=== PATIENT | male | born 1965 ===

== ENCOUNTER 2019-04-01 06:19 | Observation (INO) ==
[2019-04-01] MEDS ORDERED: NITROGLYCERIN TOP ONE (06:26)
[2019-04-01 06:35] LABS: BASO# 0.05 X1000 (0.0-0.2); BASO% 0.5 % (0.0-0.8); EOS# 0.35 X1000 (0.0-0.7); EOS% 3.4 % (0.0-10.0); HEMATOCRIT 50.7 % (42.0-52.0); HEMOGLOBIN 16.7 g/dL (14.0-18.0); IMM GRAN# 0.02 X1000 (0.0-0.04); IMM GRAN% 0.2 % (0.0-0.5); LYMPH# 3.98 X1000 (1.2-3.4); LYMPH% 38.9 % (20.5-51.1); MCH 30.3 PG (27-31); MCHC 32.9 g/dL (33-37); MONO# 0.67 X1000 (0.11-0.59); MONO% 6.5 % (1.7-9.3); MPV 9.1 FL (7.4-10.4); NEUT# 5.17 X1000 (1.4-6.5); NEUT% 50.5 % (42.2-75.2); PLT 295 X1000 (130-400); RBC 5.51 XMIL (4.7-6.1); WBC 10.24 X1000 (4.8-10.8)
[2019-04-01] MEDS ORDERED: ZOFRAN IV ONE (06:48)
[2019-04-01] MEDS ORDERED: MORPHINE IV ONE (06:48)
[2019-04-01 07:06] LABS: AGAP 14; ALBUMIN 4.9 g/dL (3.5-5.0); ALKALINE PHOSPHATASE 66 U/L (32-122); BUN 19 mg/dL (8-22); CALCIUM 9.4 mg/dL (8.8-10.2); CHLORIDE 103 mmol/L (98-107); COSMO 285; CREATININE 1.2 mg/dL (0.7-1.2); ESTIMATED GFR > 60; GLUCOSE 134 mg/dL (70-104); GOT 20 U/L (10-34); GPT 25 U/L (10-44); POTASSIUM 4.6 mmol/L (3.5-5.1); SODIUM 141 mmol/L (136-145); TCO2 24 mmol/L (25-35); TOTAL PROTEIN 7.1 g/dL (6.3-8.3)
--- NOTE | 2019-04-01 08:23 | Diag Imaging Result Doc PS360 ---
EXAM: CHEST-PORTABLE HISTORY: cp TECHNIQUE: Single view of the chest was performed portably. COMPARISON: None. FINDINGS: This been a suboptimal inspiratory result with crowding of the basilar bronchovascular structures. The cardiomediastinal silhouette is within normal limits. The pulmonary vasculature is not congested. No infiltrate, effusion, or pneumothorax is appreciated. IMPRESSION: Poor inspiratory result with crowding of basilar bronchovascular structures. Electronically signed by Maru Pedroza 04/01/2019 8:21 AM
--- NOTE | 2019-04-01 08:34 | PROVIDER DOCUMENTATION ---
HPI-Chest Pain - General Chief Complaint: Chest Pain Stated Complaint: CHEST PAIN Time Seen by Provider: 04/01/19 08:11 Source: patient Allergies/Adverse Reactions: Patient Allergies Allergy/AdvReac Type Severity Reaction Status Date / Time No Known Allergies Allergy Verified 04/01/19 06:25 Home Medications: Home Medication List Medication Instructions Recorded Confirmed Last Taken Type Aspirin 81 mg PO DAILY 04/01/19 04/01/19 Unknown History - History of Present Illness-CP Nature of Presenting Problem: 53yom present to ER with c/o L sided chest pain onset around 0500 this morning. Pt reports he was at work when he became diaphoretic, SOB, nauseated and having CP. Pt states his pain has eased some but still rates 5/10. Pt reports he had "some blockage" when they done a heart cath 10 years ago. Pt has not been followed by cardiology. Location: reports: central Chest Pain Radiation: reports: no radiation Quality of Pain: reports: pressure, tightness Onset/Duration: this morning Timing: still present, improving Modifying Factors: improves with: nothing Associated Symptoms: reports: diaphoresis, fatigue, nausea, shortness of breath. denies: dizziness, edema, fever/chills, vomiting Nitro Today/Relief: 0.4 mg x 1, provided by ED, mild relief Aspirin Treatment Today: 81 mg x 4 Similar Symptoms Previously?: No Review of Systems - Adult - REVIEW OF SYSTEMS - ADULT Constitutional: reports: no symptoms reported. denies: chills, fever Eyes: reports: no symptoms reported Ears, Nose, Mouth & Throat: reports: no symptoms reported Cardiovascular: reports: see HPI, chest pain. denies: edema Respiratory: reports: see HPI, shortness of breath. denies: cough, wheezing Gastrointestinal: reports: see HPI, nausea. denies: abdominal pain, diarrhea, vomiting Genitourinary: reports: no symptoms reported Musculoskeletal: reports: no symptoms reported. denies: back pain Integumentary: reports: no symptoms reported Neurological: reports: no symptoms reported Psychiatric: reports: no symptoms reported Endocrine: reports: no symptoms reported Hematologic/Lymphatic: reports: no symptoms reported Allergic/Immunologic: reports: no symptoms reported All Other Systems: Reviewed and Negative Past History - Adult - PAST MEDICAL HISTORY-ADULT Review of Records: reports: Old Records Reviewed, Nursing Assessment Review, Medications Reviewed, Social history reviewed & non-contributory. Major Childhood Illnesses: reports: denies history Cardiovascular: reports: HTN, hyperlipidemia Respiratory: reports: denies history Gastrointestinal: reports: denies history Obstetrical/Gynecological: reports: denies history Genitourinary: reports: denies history Musculoskeletal: reports: denies history Neurological: reports: denies history Endocrine/Immune: reports: denies history Other Conditions: reports: denies history Physical Exam-General - PHYSICAL EXAM-ADULT Initial Vital Signs Reviewed: Yes - CONSTITUTIONAL General Appearance: appears well, alert, no apparent distress - EYES Eyes: pink conjunctivae - HEAD, EARS, NOSE, MOUTH & THROAT HENMT: moist mucous membranes, normal ENT inspection - NECK Neck: full range of motion, supple, normal inspection - RESPIRATORY Respiratory: chest non-tender, lungs clear, normal breath sounds, no pleuratic chest pain, no respiratory distress, no accessory muscle use. negative: crackles, rales, rhonchi, stridor, wheezing - CARDIOVASCULAR Cardiovascular: normal peripheral pulses, no edema, bradycardia - GASTROINTESTINAL (ABDOMEN) Abdominal Exam: normal bowel sounds, non tender, soft - LYMPHATIC Lymphatic: no adenopathy - MUSCULOSKELETAL Back Exam: normal inspection Extremity: normal range of motion, normal inspection, no pedal edema, no calf tenderness, normal capillary refill - SKIN Integumentary: normal color, warm/dry - NEUROLOGIC Neurologic: grossly normal, no motor/sensory deficits - PSYCHIATRIC Psych/Mental Status: normal mood/affect, normal thought content, normal thought process, oriented x 3 - HEART Score HEART Score: History: Moderately Suspicious HEART Score: ECG: Normal HEART Score: Age: 45-65 Years HEART Score: Risk Factors for Atherosclerotic Disease: 1 or 2 Risk Factors HEART Score: Troponin: < or = Normal Limit Total HEART Score:: 3 Progress - PLAN OF CARE/RESULTS Progress/Plan/Lab Results: Vital Signs - 8 hr 04/01/19 06:23 04/01/19 07:43 04/01/19 08:43 Temperature 98.3 F Pulse Rate 50 L 63 64 Respiratory Rate 18 14 18 Blood Pressure 151/95 151/94 133/86 O2 Sat by Pulse Oximetry 100 97 96 Laboratory Results - last 24 hr 04/01/19 04/01/19 04/01/19 06:24 06:24 06:24 WBC 10.24 RBC 5.51 Hgb 16.7 Hct 50.7 MCV 92.0 MCH 30.3 MCHC 32.9 L RDW Std Deviation 14.0 Plt Count 295 MPV 9.1 Immature Gran % (Auto) 0.2 Neut % (Auto) 50.5 Lymph % (Auto) 38.9 [place] % (Auto) 6.5 Eos % (Auto) 3.4 Baso % (Auto) 0.5 Immature Gran # (Auto) 0.02 Neut # (Auto) 5.17 Lymph # (Auto) 3.98 H [place] # (Auto) 0.67 H Eos # (Auto) 0.35 Baso # (Auto) 0.05 D-Dimer, Quantitative Sodium Potassium Chloride Carbon Dioxide Anion Gap BUN Creatinine Estimated GFR/1.73 m2 BUN/Creatinine Ratio Glucose Calculated Osmolality Calcium Total Bilirubin AST ALT Alkaline Phosphatase Creatine Kinase 111 Troponin T < 0.010 Total Protein Albumin Globulin Albumin/Globulin Ratio 04/01/19 04/01/19 04/01/19 06:24 06:24 08:40 WBC RBC Hgb Hct MCV MCH MCHC RDW Std Deviation Plt Count MPV Immature Gran % (Auto) Neut % (Auto) Lymph % (Auto) [place] % (Auto) Eos % (Auto) Baso % (Auto) Immature Gran # (Auto) Neut # (Auto) Lymph # (Auto) [place] # (Auto) Eos # (Auto) Baso # (Auto) D-Dimer, Quantitative < 0.27 Sodium 141 Potassium 4.6 Chloride 103 Carbon Dioxide 24 L Anion Gap 14 BUN 19 Creatinine 1.2 Estimated GFR/1.73 m2 > 60 BUN/Creatinine Ratio 16 Glucose 134 H Calculated Osmolality 285 Calcium 9.4 Total Bilirubin 0.50 AST 20 ALT 25 Alkaline Phosphatase 66 Creatine Kinase 109 Troponin T Total Protein 7.1 Albumin 4.9 Globulin 2.0 Albumin/Globulin Ratio 2.0 04/01/19 08:40 WBC RBC Hgb Hct MCV MCH MCHC RDW Std Deviation Plt Count MPV Immature Gran % (Auto) Neut % (Auto) Lymph % (Auto) [place] % (Auto) Eos % (Auto) Baso % (Auto) Immature Gran # (Auto) Neut # (Auto) Lymph # (Auto) [place] # (Auto) Eos # (Auto) Baso # (Auto) D-Dimer, Quantitative Sodium Potassium Chloride Carbon Dioxide Anion Gap BUN Creatinine Estimated GFR/1.73 m2 BUN/Creatinine Ratio Glucose Calculated Osmolality Calcium Total Bilirubin AST ALT Alkaline Phosphatase Creatine Kinase Troponin T < 0.010 Total Protein Albumin Globulin Albumin/Globulin Ratio Orders Category Date Time Status Cardiac Monitoring DIRECTED Care 04/01/19 06:24 Active CHEST-PORTABLE [RAD] Stat Exams 04/01/19 06:39 Completed CBC WITH ELECTRONIC DIFF [HEME] Stat Lab 04/01/19 06:24 Completed CK PROFILE [SP CHEM] Stat Lab 04/01/19 06:24 Completed CK PROFILE [SP CHEM] Stat Lab 04/01/19 08:40 Completed CMP [COMPREHENSIVE METABOLIC PANEL] [CHEM] Stat Lab 04/01/19 06:24 Completed D-DIMER [COAG] Stat Lab 04/01/19 06:24 Completed TROPONIN T Stat Lab 04/01/19 06:24 Completed TROPONIN T Stat Lab 04/01/19 08:40 Completed Morphine Med 04/01/19 06:48 Discontinued 4 mg IV NOW ONE Nitroglycerin Med 04/01/19 06:26 Discontinued 0.5 inch TOP NOW ONE Nitroglycerin Sl [Nitroglycerin] Med 04/01/19 08:30 Active 0.4 mg SL Q5M PRN PRN Ondansetron [Zofran] Med 04/01/19 06:48 Discontinued 4 mg IV NOW ONE Oxygen Device Stat Oth 04/01/19 06:27 Active EKG [EKG] Stat Ther 04/01/19 06:23 Ordered EKG [EKG] Stat Ther 04/01/19 08:03 Ordered Result Diagrams: 04/01/19 06:24 04/01/19 06:24 - REASSESSMENT Reassessment #1 Time Reassessed: 08:34 (reviewed results with pt thus far, pt still complaining of pain after medication. Discussed need for possible admission) Reassessment #2 Time Reassessed: 09:05 (updated pt and family of admission status. Pt lying flat when entered room. Pt states he felt dizzy and weak. States it is "easing". BP 118/74) - EKG 1 Time of EKG reading by physician:: 06:16 EKG Read and Signed by:: Collin Muro EKG Interpretation (*Must complete 3 of following elements*): Abnormal Rate: 56 Rhythm: Sinus bradycardia with sinus arrhythmia 2 Time of EKG reading by physician:: 09:18 EKG Read and Signed by:: Collin Muro Rate: 50 Rhythm: sinus bradycardia - XRAY 1 XRAY Study: Chest Impression: See EMR Report (FINDINGS: This been a suboptimal inspiratory result with crowding of the basilar bronchovascular structures. The cardiomediastinal silhouette is within normal limits. The pulmonary vasculature is not congested. No infiltrate, effusion, or pneumothorax is appreciated. IMPRESSION: Poor inspiratory result with crowding of basilar bronchovascular structures. Electronically signed by Maru Pedroza 04/01/2019 8:21 AM) - CONSULTS/PCP/HOSPITALIST Notification #1 *Consult/PCP/Hospitalist*: Dr Moy Time Discussed: 09:00 Consult Disposition: Will see in ED, Admit Departure - Departure Date of Disposition Decision: 04/01/19 Time of Disposition Decision: 09:05 DIAGNOSIS: Chest pain Qualifiers: Chest pain type: unspecified Qualified Code(s): R07.9 - Chest pain, unspecified Disposition: ADMITTED INPATIENT 09 Certified Medical Emergency: Emergent Condition: Stable Referrals and Follow-Ups: None,PCP [Primary Care Provider] - - Critical Care Note This patient required my direct & personal management of CC.: No Attestation - Physician/ FREDRICK Attestation Patient care was provided by Advanced Practice Provider:: Yes Advanced Practice Provider:: Didi Teran Advanced Practice Provider documentation review:: The Mid-level provider documentation, treatment plan and medical decision making was reviewed by the physician who agrees with all treatment and medical decision making by the MLP. The physician spent face to face time with patient:: No Advanced Practice Provider documentation review:: Supervising physician onsite and consulted in the evaluation and care of this patient. The physician did not have a face to face encounter with the patient.
[2019-04-01] MEDS: NITROGLYCERIN SL PRN ×2 (08:42→17:45)
--- NOTE | 2019-04-01 10:32 | EKG Report ---
Test Performed on : 04/01/2019 06:16:27 AM Test Reason : cp Blood Pressure : / mmHG Vent. Rate : 056 BPM Atrial Rate : 056 BPM P-R Int : 150 ms QRS Dur : 090 ms QT Int : 424 ms P-R-T Axes : 060 073 070 degrees QTc Int : 409 ms Sinus bradycardia. with sinus arrhythmia. Septal infarct , age undetermined Abnormal ECG No previous ECGs available Unconfirmed Result
--- NOTE | 2019-04-01 10:38 | EKG Report ---
Test Performed on : 04/01/2019 09:18:57 AM Test Reason : repeat Blood Pressure : / mmHG Vent. Rate : 050 BPM Atrial Rate : 050 BPM P-R Int : 144 ms QRS Dur : 092 ms QT Int : 426 ms P-R-T Axes : 044 063 064 degrees QTc Int : 388 ms Sinus bradycardia. Otherwise normal ECG When compared with ECG of 01-APR-2019 06:16, (Unconfirmed) No significant change was found Unconfirmed Result
--- NOTE | 2019-04-01 10:57 | EKG Report ---
Test Performed on : 04/01/2019 10:57:35 AM Test Reason : CP Blood Pressure : / mmHG Vent. Rate : 056 BPM Atrial Rate : 056 BPM P-R Int : 140 ms QRS Dur : 090 ms QT Int : 424 ms P-R-T Axes : 035 050 055 degrees QTc Int : 409 ms Sinus bradycardia. Otherwise normal ECG When compared with ECG of 01-APR-2019 09:18, (Unconfirmed) No significant change was found Unconfirmed Result
--- NOTE | 2019-04-01 15:02 | HISTORY AND PHYSICAL ---
PRIMARY CARE PHYSICIAN: Dr. Banuelos in [place], [place]. CHIEF COMPLAINT: Chest pain. HISTORY OF PRESENTING ILLNESS: This is a 53-year-old male who presented to [facility] ER with complaints of left-sided chest pain that began around 5 a.m. this morning. States he was at work and became very diaphoretic, nauseated, had left-sided chest pain initially that radiated across his chest and rated it a 5/10. Stated it felt like a tightness across his chest. His heart score was 3. His stress test was approximately 10 years ago and was normal. His first 2 sets of cardiac enzymes have been normal. His EKG showed sinus bradycardia with sinus arrhythmia at 56. So he was admitted to the medical unit for further evaluation and treatment. PAST MEDICAL HISTORY: None. PAST SURGICAL HISTORY: Back surgery x2, nose surgery and a right carotid endarterectomy. FAMILY HISTORY: Heart disease and cancer. SOCIAL HISTORY: He lives with family. Denies any tobacco use. States he smoked cigarettes between the age of 8 and 14, but has not smoked since then and denied any alcohol or illicit drug use. ALLERGIES: No known drug allergies. HOME MEDICATIONS: He takes aspirin 81 mg p.o. daily, vitamin D3 1000 units p.o. daily, kelp 600 mg p.o. daily, vitamin K2 100 mg p.o. daily. LABORATORY DATA: Showed a white blood cell count of 10.24, hemoglobin 16.7, hematocrit 50.7, platelets 295,000. D-dimer of less than 0.27, sodium 141, potassium 4.6, chloride 103, CO2 24, BUN of 19, creatinine 1.2, glucose 134. Cardiac enzymes x2 sets were negative. EKG, sinus bradycardia with sinus arrhythmia. Chest x-ray showed poor inspiratory result with crowding of basilar bronchovascular structures. REVIEW OF SYSTEMS: He denied any fever, chills, blurred vision, dizziness. He had some diaphoresis, left-sided chest pain, nausea. Denied any abdominal pain, constipation, diarrhea, burning or hurting with urination. PHYSICAL EXAMINATION: VITAL SIGNS: On arrival, he had a temperature of 98.3 degrees, pulse 50, respirations 18, blood pressure 151/95, saturating 100% on room air. Currently, his pulse is up to 59. GENERAL: This is a 53-year-old male who is lying in the bed and answers questions appropriately. HEENT: Normocephalic, atraumatic. Normal ENT inspection. Oropharynx and nares are clear. EYES: Pupils are equal, round, reactive to light and accommodation. Extraocular movements are intact. NECK: Normal inspection. Normal range of motion. LUNGS: Clear to auscultation bilaterally with equal lung expansion and chest wall movement. HEART: With regular rate and rhythm. No murmurs, rubs, or gallops. ABDOMEN: Soft, nontender, nondistended. Bowel sounds are present x4 quadrants. MUSCULOSKELETAL: He has 5/5 strength x4 extremities. NEUROLOGICAL: The cranial nerves 2-12 appear grossly intact. ASSESSMENT: Chest pain. PLAN: He was admitted to the medical unit, placed on telemetry, O2 per protocol. We will hold him NPO for a myocardial perfusion scan today. We will continue his home medications and will check 1 more set of cardiac enzymes to complete the series. Further orders after seen by attending. Dictated by HIEN Bravo for Justus Moy MD cc: HIEN Bravo MD
[2019-04-01] MEDS: MORPHINE IV PRN (17:56)
--- NOTE | 2019-04-01 18:30 | Diag Imaging Result Document ---
PROCEDURE NAME: MYOCARDIAL PERF SCAN, STR/REST - 04/01/2019 INDICATION: Chest pain. PROCEDURES PERFORMED: 1. Lexiscan stress (results dictated separately by performing physician). 2. One-day stress rest myocardial perfusion imaging. FINDINGS: 1. No evidence of abnormal extracardiac uptake. 2. No clear evidence of transient ischemic dilatation on review of the splash images. 3. Perfusion imaging shows a moderate size [id number] intensity defect. This defect is located in the inferior apical, mid inferior and basal inferior segments. This defect appears to be more fixed in the basal portions with some reversibility in the more apical portions. This would suggest a mixed defect. Etiologies could be shifting soft tissue attenuation artifact versus possible ischemic burden. Wall motion appears to be intact in this area. Clinical correlation is recommended. 4. Normal ejection fraction of 64%. The end-diastolic volume is 77, end-systolic volume 27. Normal wall motion. cc: MD Angelique Marcano CRNP
[2019-04-01] MEDS ORDERED: LEXISCAN ONE (19:05)
--- NOTE | 2019-04-01 21:22 | Diag Imaging Result Doc PS360 ---
EXAM: CT ANGIOGRM PULMONARY ARTERIES INDICATION: CP/Factor 5 Leiden TECHNIQUE: This exam was performed using automated exposure control, adjustment of mA or kV according to patient size, and/or use of iterative reconstruction technique. Thin section axial images and 3-D MIPS were obtained. COMPARISON: None. FINDINGS: There is no evidence of pulmonary embolism. There is no evidence of aortic dissection or aneurysm. There is no cardiomegaly. There is no evidence of significant mediastinal or hilar lymphadenopathy. There is minimal subsegmental atelectasis at the lung bases. The lungs are grossly clear, otherwise. There is no pleural fluid collection and no pneumothorax. Limited views of the upper abdomen reveals moderate hepatic steatosis. IMPRESSION: No evidence of pulmonary embolism or other definite acute chest pathology. Electronically signed by Ant Mancilla 04/01/2019 9:20 PM
[2019-04-01] MEDS ORDERED: ASPIRIN PO ONE (22:52)
[2019-04-01] MEDS ORDERED: LOVENOX 1 MG/KG SUBQ ONE (22:52)
--- NOTE | 2019-04-01 22:58 | GRADED EXERCISE REPORT ---
DATE: 04/01/2019 INDICATIONS: The patient has chest pain, shortness of breath. FINDINGS: Heart rate 62, blood pressure 125/82. His baseline EKG showed some T-wave inversion in III but otherwise was negative. He underwent Lexiscan infusion. He did develop just nausea, dizziness, headaches. No clear chest pain, although he did have a little bit of burning he said similar to his previous episodes. There were no significant ST changes noted consistent with ischemia. The test was felt to be clinically negative and electrically negative. Peak heart rate 100, peak blood pressure 130/80. Myocardial perfusion will be reported separately. cc: Justus Moy MD
[2019-04-01] MEDS ORDERED: LIPITOR PO SCH (23:15)
[2019-04-01] MEDS: LOVENOX SUBQ SCH (23:29)
--- NOTE | 2019-04-02 00:10 | HISTORY AND PHYSICAL ---
ADDENDUM Patient came in with chest pain, atypical, across his chest, diaphoretic. He has no heart disease. He did have a mother who in her 30s of heart disease, so he does have some family history. He does not currently smoke. He does take an aspirin. Workup in the ER was negative. He has had 2 sets of cardiac enzymes, which is probably not enough but, in any case, he does report a history of factor V Leiden. His father had Factor V Leiden, but he says he is heterozygous, so we will do serial enzymes. We will do chest pain workup. Since he has factor V Leiden, even though his D-dimer was negative, I still think we probably do need to rule out PE, it would be unlikely, or VTE, so we will continue to follow. This is a [id number] encounter note with HIEN Bravo. cc: Justus Moy MD
[2019-04-02] MEDS: LOPRESSOR PO SCH ×2 (00:14→10:01)
[2019-04-02] MEDS: MORPHINE IV PRN ×3 (00:27→10:14)
[2019-04-02 03:06] LABS: BASO# 0.04 X1000 (0.0-0.2); BASO% 0.4 % (0.0-0.8); EOS# 0.17 X1000 (0.0-0.7); EOS% 1.8 % (0.0-10.0); HEMATOCRIT 46.7 % (42.0-52.0); HEMOGLOBIN 15.7 g/dL (14.0-18.0); IMM GRAN# 0.02 X1000 (0.0-0.04); IMM GRAN% 0.2 % (0.0-0.5); LYMPH# 3.03 X1000 (1.2-3.4); LYMPH% 32.1 % (20.5-51.1); MCH 30.8 PG (27-31); MCHC 33.6 g/dL (33-37); MCV 91.6 FL (81-99); MONO# 0.94 X1000 (0.11-0.59); MONO% 9.9 % (1.7-9.3); MPV 9.1 FL (7.4-10.4); NEUT# 5.25 X1000 (1.4-6.5); NEUT% 55.6 % (42.2-75.2); PLT 265 X1000 (130-400); RDW 13.8 % (11.5-14.5); WBC 9.45 X1000 (4.8-10.8)
[2019-04-02 03:29] LABS: AGAP 12; BUN 21 mg/dL (8-22); CALCIUM 8.8 mg/dL (8.8-10.2); CHLORIDE 102 mmol/L (98-107); COSMO 279; ESTIMATED GFR > 60; GLUCOSE 100 mg/dL (70-104); SODIUM 138 mmol/L (136-145); TCO2 25 mmol/L (25-35)
--- NOTE | 2019-04-02 06:14 | EKG Report ---
Test Performed on : 04/01/2019 8:50:19 PM Test Reason : CP, elevated troponins Blood Pressure : / mmHG Vent. Rate : 062 BPM Atrial Rate : 062 BPM P-R Int : 146 ms QRS Dur : 092 ms QT Int : 394 ms P-R-T Axes : 061 066 005 degrees QTc Int : 399 ms Normal sinus rhythm. with sinus arrhythmia. Nonspecific T wave abnormality Abnormal ECG When compared with ECG of 01-APR-2019 10:57, (Unconfirmed) T wave inversion now evident in Inferior leads Nonspecific T wave abnormality now evident in Lateral leads Confirmed by Collin Muro MD ([id number]) on 04/09/2019 11:46:28 AM
[2019-04-02] MEDS ORDERED: ASPIRIN PO SCH ×2 (09:00)
[2019-04-02] MEDS ORDERED: PATIENT'S OWN MED PO SCH ×2 (09:00)
[2019-04-02] MEDS ORDERED: VITAMIN D PO SCH (09:00)
[2019-04-02] MEDS ORDERED: NS 1,000 ML IV ONE (09:17)
[2019-04-02] MEDS ORDERED: NITROGLYCERIN TOP ONE (11:00)
[2019-04-02] MEDS: LOVENOX SUBQ SCH (11:21)
--- NOTE | 2019-04-02 11:35 | Diag Imaging Result Doc PS360 ---
EXAM: US GB < RUQ (LIMITED) INDICATION: elevated liver enzymes COMPARISON: None. FINDINGS: The gallbladder appears normal with no stones, wall thickening, or pericholecystic fluid. The common bile duct is normal in diameter. Sonographic Gross's sign was reported to be negative. The liver echotexture is diffusely increased suggesting hepatic steatosis. No discrete hepatic mass is identified. Portal venous flow is hepatopetal. The pancreas is partially obscured. Visualized portion is unremarkable. The aorta and IVC are grossly unremarkable. The right kidney is grossly unremarkable. IMPRESSION: Suggestion of hepatic steatosis. Electronically signed by Ant Mancilla 04/02/2019 11:33 AM
--- NOTE | 2019-04-02 12:03 | EKG Report ---
Test Performed on : 04/02/2019 09:23:31 AM Test Reason : CP Blood Pressure : / mmHG Vent. Rate : 062 BPM Atrial Rate : 062 BPM P-R Int : 152 ms QRS Dur : 092 ms QT Int : 404 ms P-R-T Axes : 048 055 014 degrees QTc Int : 410 ms Normal sinus rhythm. Possible Anterior infarct , age undetermined Abnormal ECG When compared with ECG of 01-APR-2019 20:50, (Unconfirmed) Nonspecific T wave abnormality no longer evident in Lateral leads Confirmed by Collin Muro MD ([id number]) on 04/09/2019 11:46:23 AM
[2019-04-02 12:08] VITALS: BP 126/98
--- NOTE | 2019-04-02 22:33 | DISCHARGE SUMMARY ---
ADMISSION DATE: 04/01/2019 DISCHARGE DATE: 04/02/2019 DISCHARGE DIAGNOSIS: Non-ST segment elevation myocardial infarction. ADMISSION DIAGNOSIS: Chest pain, unstable angina. PROCEDURES: None. TESTIN. Myocardial perfusion scan showed moderate intensity defect inferior apical, mid inferior basal inferior, which was felt to be a mixed defect with 64%. No wall motion abnormality. 2. CTA was negative for PE. HISTORY AND HOSPITAL COURSE: The patient presented with chest pain the morning of, left-sided across his chest. He was admitted. He had initially 2 sets of cardiac enzymes that were negative, and then he underwent a stress test, which did not show the perfusion defects. He had chest pain associated, please see my report. When he came back to the floor, he had persistent chest pain. We checked another set of cardiac enzymes, at that point, around 6. He did have a mild elevation in his troponin with a normal CK. EKG did not show, per se, any ischemic changes. He was transferred to the unit and placed on aspirin, Lovenox, and morphine, metoprolol and atorvastatin per Dr. Hwang. He did have some chest pain overnight, but the following day he was chest-pain free. Vital signs were stable. EKGs did not show any clear ischemic changes even the next day, but he came in for evaluation. Family requesting that if he needed to be transferred, we would go to [facility]. I discussed the case with Dr. Khan at [facility], they were on diversion. Since the patient was felt to be stable, he just recommended to continue and call back to re-evaluate for diffusion. Dr. Hwang evaluated the patient and felt that we should go ahead and transfer to [facility] for evaluation for cardiac cath and PCI. The patient is stable. I would recommend aspirin therapy. He is anticoagulated and we will continue to follow. He does need an echocardiogram and probably venous Doppler's, although his D-dimer was negative. Further care per [facility]. TIME SPENT: 32 minute discharge. cc: Justus Moy MD
== END 2019-04-02 12:40 | disposition short-term general hospital (02) ==
LOC: P.ED 06:19 → P.ICU 06:19 → P.MEDSURG 06:19
PROVIDERS: ATTEND Internal Medicine